=== PATIENT | female | born 1950 | race Caucasian/White ===

== ENCOUNTER 2022-03-04 09:11 | Outpatient (CLI) | payer MEDICARE, SELFPAY ==
--- NOTE | ~2022-03-04 | XR_ITS ---
EXAMINATION: XR knee LT 3V DATE: 03/04/2022 09:37 INDICATION: Left knee pain TECHNIQUE: Three views of the left knee were obtained. COMPARISON: 09/24/2020 FINDINGS: There are changes of total knee arthroplasty. Alignment is normal. There is no fracture. Th ere is no evidence of hardware failure or loosening. The soft tissues are unremarkable. There is no j oint effusion. IMPRESSION: 1. No acute osseous abnormality. Reviewed, dictated and finalized at location A.
== END 2022-03-04 09:12 | disposition home or self-care (01) ==
LOC: CHSIMG 09:13
PROVIDERS: PCP Family Medicine; Visit Provider Orthopaedic Surgery
DX: M25.562 Pain in left knee (principal)
CPT/HCPCS: 73562

== ENCOUNTER 2022-08-18 14:00 | Outpatient (CLI) | payer MEDICARE, SELFPAY ==
[2022-08-18 19:05] LABS: Basophils Absolute Auto 0.1 K/mm3 (0.0-0.1); Basophils Percent Auto 0.8 % (0.2-1.2); Eosinophils Absolute Auto 0.1 K/mm3 (0-0.3); Eosinophils Percent Auto 1.3 % (0-4.4); Hematocrit 46.7 % (37.0-47.0); Hemoglobin 15.3 g/dL (12.0-15.0); Immature Granulocyte Absolute 0.02 K/mm3 (0.00-0.031); Immature Granulocyte Percent A 0.2 % (0-0.5); Lymphocytes Absolute Auto 2.76 K/mm3 (0.9-3.2); Lymphocytes Percent Auto 32.4 % (18.3-44.2); Mean Corpuscular HGB Conc 32.8 g/dl (32-36); Mean Corpuscular Hemoglobin 29.5 pg (26-34); Mean Platelet Volume 11.2 fl (7.4-10.4); Monocytes Absolute Auto 0.5 K/mm3 (0.1-0.6); Monocytes Percent Auto 5.8 % (2.6-8.5); Neutrophils Absolute Auto 5.1 K/mm3 (1.3-6.7); Neutrophils Percent Auto 59.5 % (45.5-73.1); Platelet Count Result 266 k/mm3 (150-375); Red Blood Count 5.19 M/mm3 (4.2-5.4); Red Cell Distribution Width 12.6 % (11.5-14.5); White Blood Count 8.5 K/mm3 (4.5-10.0)
[2022-08-18 20:39] LABS: Vitamin D 25 Hydroxy 13.3 ng/mL
[2022-08-18 20:47] LABS: Hemoglobin A1C 5.5 % (<5.7)
[2022-08-18 21:32] LABS: Alanine Aminotransferase 26 U/L (6-35); Albumin Level 4.4 g/dL (3.5-5.1); Alkaline Phosphatase 82 U/L (38-126); Anion Gap 8 mmol/L (8-16); Aspartate Amino Transferase 32 U/L (14-36); Bilirubin,Total 0.9 mg/dL (0.2-1.3); Blood Urea Nitrogen 15 mg/dL (7-17); Carbon Dioxide 24 mmol/L (22-30); Chloride 107 mmol/L (98-107); Cholesterol 230 mg/dL (0-200); Estimated Glomerular Filt Rate > 60; Glucose 97 mg/dL (65-110); HDL Direct 52 mg/dL; Potassium 4.6 mmol/L (3.4-5.0); Sodium 139 mmol/L (137-145); Triglycerides 146 mg/dL (<150)
[2022-08-18 21:43] LABS: LDL Cholesterol Direct 130 mg/dL
== END 2022-08-18 14:01 | disposition home or self-care (01) ==
LOC: ANHGOSHLAB 14:01
PROVIDERS: PCP Family Medicine; Visit Provider Nurse Practitioner Family
DX: E03.9 Hypothyroidism, unspecified (principal); I10 Essential (primary) hypertension; R73.01 Impaired fasting glucose; E55.9 Vitamin D deficiency, unspecified
CPT/HCPCS: 36415; 80053; 80061; 82306; 83036; 84443; 85025

== ENCOUNTER 2023-02-16 13:20 | Outpatient (CLI) | payer MEDICARE, SELFPAY ==
[2023-02-16 20:35] LABS: Alanine Aminotransferase 30 U/L (6-35); Albumin Level 4.1 g/dL (3.5-5.1); Alkaline Phosphatase 74 U/L (38-126); Anion Gap 1 mmol/L (8-16); Aspartate Amino Transferase 51 U/L (14-36); Bilirubin,Total 0.8 mg/dL (0.2-1.3); Blood Urea Nitrogen 10 mg/dL (7-17); Calcium 8.7 mg/dL (8.4-10.2); Carbon Dioxide 34 mmol/L (22-30); Chloride 103 mmol/L (98-107); Cholesterol 220 mg/dL (0-200); Estimated Glomerular Filt Rate > 60; Glucose 92 mg/dL (65-110); HDL Direct 51 mg/dL; Potassium 4.1 mmol/L (3.4-5.0); Sodium 138 mmol/L (137-145); Triglycerides 145 mg/dL (<150)
[2023-02-16 20:40] LABS: Vitamin D 25 Hydroxy 59.3 ng/mL
[2023-02-16 20:47] LABS: LDL Cholesterol Direct 130 mg/dL
[2023-02-16 21:29] LABS: Basophils Absolute Auto 0.1 K/mm3 (0.0-0.1); Basophils Percent Auto 1.4 % (0.2-1.2); Eosinophils Absolute Auto 0.2 K/mm3 (0-0.3); Eosinophils Percent Auto 2.2 % (0-4.4); Hematocrit 46.9 % (37.0-47.0); Hemoglobin 14.8 g/dL (12.0-15.0); Immature Granulocyte Absolute 0.01 K/mm3 (0.00-0.031); Immature Granulocyte Percent A 0.1 % (0-0.5); Lymphocytes Absolute Auto 3.12 K/mm3 (0.9-3.2); Lymphocytes Percent Auto 42.3 % (18.3-44.2); Mean Corpuscular HGB Conc 31.6 g/dl (32-36); Mean Corpuscular Hemoglobin 29.5 pg (26-34); Mean Corpuscular Volume 93.4 fl (80-100); Mean Platelet Volume 11.3 fl (7.4-10.4); Monocytes Absolute Auto 0.5 K/mm3 (0.1-0.6); Monocytes Percent Auto 6.8 % (2.6-8.5); Neutrophils Absolute Auto 3.5 K/mm3 (1.3-6.7); Neutrophils Percent Auto 47.2 % (45.5-73.1); Platelet Count Result 271 k/mm3 (150-375); Red Blood Count 5.02 M/mm3 (4.2-5.4); Red Cell Distribution Width 13.1 % (11.5-14.5); White Blood Count 7.4 K/mm3 (4.5-10.0)
== END 2023-02-16 13:21 | disposition home or self-care (01) ==
LOC: ANHGOSHLAB 13:21
PROVIDERS: PCP Family Medicine; Visit Provider Nurse Practitioner Family
DX: E03.9 Hypothyroidism, unspecified (principal); I10 Essential (primary) hypertension; E78.5 Hyperlipidemia, unspecified; E55.9 Vitamin D deficiency, unspecified; M25.561 Pain in right knee
CPT/HCPCS: 36415; 80053; 80061; 82306; 84443; 85025

== ENCOUNTER 2023-04-22 17:35 | Emergency (ER) | payer MEDICARE, SELFPAY ==
--- NOTE | ~2023-04-22 | CT_ITS ---
EXAMINATION: CT cervical spine wo con DATE: 04/22/2023 18:28 INDICATION: fall TECHNIQUE: Computed tomography (CT) of the cervical spine was performed without intravenous contrast. Automated exposure control and iterative reconstruction technique were employed. The dose-length pro duct was 447.98 mGy-cm. COMPARISON: None. FINDINGS: Vertebral Body Alignment: Intact. Craniocervical and atlantoaxial alignment: Mild degenerative change. Alignment intact. Osseous structures/fracture: No evidence of a lytic or blastic process in the visualized spine. No e vidence of acute fracture. Cervical soft tissues: The paraspinal soft tissues planes are maintained. Atrophic or surgically abse nt thyroid Degenerative changes: No significant degenerative changes. IMPRESSION: No acute fracture or traumatic malalignment in the cervical spine. Reviewed, dictated and finalized at location K.
--- NOTE | ~2023-04-22 | CT_ITS ---
EXAMINATION: CT brain wo con DATE: 04/22/2023 18:28 INDICATION: fall, PT ON XARELTO . TECHNIQUE: Computed tomography (CT) of the head was performed without intravenous contrast. The mA wa s adjusted according to patient size. Iterative reconstruction technique was employed. The dose-lengt h product was 605.33 mGy-cm. COMPARISON: None. FINDINGS: Thin subdural collection along the anterior and mid falx measuring up to 4 mm in thickness. Small sub arachnoid component along the left medial aspect of the falx extending into an interhemispheric fissu re. No hydrocephalus, mass, or herniation. No acute ischemic infarct. Unremarkable dural venous sinus attenuation. No acute osseous abnormality. The aerated spaces are clear. Moderate atrophy and chronic white matter change. Atherosclerotic intracranial calcification. Bilater al lens replacements. IMPRESSION: Small volume, multi compartment intracranial hemorrhage. Results reported telephonically to Dr. Adams by Dr. Sheffield at 6:39 PM on 04/22/2023. Reviewed, dictated and finalized at location K. IMPRESSION: Small volume, multi compartment intracranial hemorrhage. Results reported telephonically to Dr. Adams by Dr. Sheffield at 6:39 PM on 04/22/20 23.
[2023-04-22 17:39] VITALS: BP 166/65; PULSE 83; RESP 16; TEMP 37; O2SAT 100
[2023-04-22 18:30] VITALS: BP 174/79; PULSE 70; RESP 20; O2SAT 100
[2023-04-22 18:52] VITALS: BP 161/57; PULSE 68; RESP 15; O2SAT 98
--- NOTE | 2023-04-22 18:54 | ED.GENADULT ---
HPI - General Adult General Chief complaint: Head Injury <HUGH Damon Last Filed: 04/23/23 00:06> Stated complaint: fall/ struck head/ <HUGH Damon Last Filed: 04/23/23 00:06> Time Seen by Provider: 04/22/23 18:26 <HUGH Damon Last Filed: 04/23/23 00:06> Source: patient <HUGH Damon Last Filed: 04/23/23 00:06> Mode of arrival: ambulatory <HUGH Damon Filed: 04/23/23 00:06> Limitations: no limitations <HUGH Damon Filed: 04/23/23 00:06> History of Present Illness HPI narrative: This is a 73-year-old female who presents to the ED from home for chief complaint of a head injury that occurred about 2 hours ago. Patient states that she was cleaning the shower and accidentally slipped on the wet floor. This caused her head to go down onto the floor and she suffered a right-sided head injury. Reports some headache at the time but no LOC. She states she was on Xarelto daily but stopped this 3 days ago as she felt she was not having any more problems with A-fib. She is here with her who reports she had a little bit of nausea and confusion at the time but that has completely resolved. Patient and family deny any speech changes. She denies vision changes. Denies seizures, numbness, weakness, vision changes. Reports that her headache is subsiding. <HUGH Damon Last Filed: 04/23/23 00:06> Related Data Home medications: Home Medications Medication Instructions Recorded Confirmed rivaroxaban 20 mg tablet (Xarelto) 20 mg PO DAILY 08/15/20 02/16/23 diphenhydramine 25 1 tablet PO QHS PRN 02/14/22 02/16/23 mg-acetaminophen 500 mg tablet (Tylenol PM Extra Strength) metoprolol succinate 25 mg 25 mg PO DAILY 08/18/22 02/16/23 tablet,extended release 24 hr <HUGH Damon Last Filed: 04/23/23 00:06> Allergies/adverse reactions: Allergies Allergy/AdvReac Type Severity Reaction Status Date / Time cyclobenzaprine Allergy Mild HIVES Verified 04/22/23 18:31 levothyroxine sodium Allergy Mild HIVES Verified 04/22/23 18:31 <HUGH Damon Last Filed: 04/23/23 00:06> Review of Systems Review of Systems: All systems as dictated in HPI <HUGH Damon Last Filed: 04/23/23 00:06> PMFSH Past Medical History Medical History: Medical History Elevated LDL cholesterol level Essential (primary) hypertension Hypothyroidism (acquired) Left knee pain Osteoarthritis Paroxysmal atrial fibrillation Pes anserine bursitis Pes anserine bursitis Left knee <HUGH Damon Last Filed: 04/23/23 00:06> Surgical History Surgical History: Surgical History History of appendectomy 1969 History of cholecystectomy 1999 History of left knee replacement (~06/2019) History of total hysterectomy with bilateral salpingo-oophorectomy (BSO) 1985 - hysterectomy with left salpingo-oophorectomy 2000 - right oophorectomy <HUGH Damon Last Filed: 04/23/23 00:06> Social History Social History: Social History Smoking status: Former smoker Second hand tobacco smoke exposure: No Smoking end date: 09/14/12 Alcohol intake: never Substance use: never Substance use type: does not use Lack of Transportation: No Lack of Food: Never True Current Housing: I Have Housing Concerned About Future Housing: No Difficulty Paying Gas/Electric Bills: No Difficulty Paying for Meds: No Currently Unemployed: No Education: High School Diploma/GED Difficulty w/ Childcare or Family Care: No <HUGH Damno Last Filed: 04/23/23 00:06> Exam Narrative: GENERAL: Well-appearing, well-nourished, and in no acute distress. HEAD: Normocephalic, atraumatic. EYES: PERRLA and EOMI. E
--- NOTE | 2023-04-22 19:10 | PC.NURSE ---
ASSUMED CARE. PT RESTING PER STRETCHER IN NO DISTRESS. PT A&OX4 C/O DUPREE 10/24.
[2023-04-22 19:12] LABS: Basophils Absolute Auto 0.1 K/mm3 (0.0-0.1); Basophils Percent Auto 0.8 % (0.2-1.2); Eosinophils Absolute Auto 0.1 K/mm3 (0-0.3); Eosinophils Percent Auto 1.4 % (0-4.4); Hematocrit 43.3 % (37.0-47.0); Hemoglobin 14.1 g/dL (12.0-15.0); Immature Granulocyte Absolute 0.02 K/mm3 (0.00-0.031); Immature Granulocyte Percent A 0.2 % (0-0.5); Lymphocytes Absolute Auto 2.49 K/mm3 (0.9-3.2); Lymphocytes Percent Auto 27.5 % (18.3-44.2); Mean Corpuscular HGB Conc 32.6 g/dl (32-36); Mean Corpuscular Hemoglobin 29.7 pg (26-34); Mean Corpuscular Volume 91.4 fl (80-100); Mean Platelet Volume 11.4 fl (7.4-10.4); Monocytes Absolute Auto 0.8 K/mm3 (0.1-0.6); Monocytes Percent Auto 8.4 % (2.6-8.5); Neutrophils Absolute Auto 5.6 K/mm3 (1.3-6.7); Neutrophils Percent Auto 61.7 % (45.5-73.1); Platelet Count Result 216 k/mm3 (150-375); Red Blood Count 4.74 M/mm3 (4.2-5.4); Red Cell Distribution Width 12.8 % (11.5-14.5); White Blood Count 9.1 K/mm3 (4.5-10.0)
[2023-04-22 19:14] VITALS: BP 152/59; PULSE 67; RESP 16; O2SAT 100
[2023-04-22 19:29] LABS: Prothrombin Time 13.5 Seconds (11.1-14.7)
[2023-04-22 19:30] LABS: Partial Thromboplastin Time 34.5 SECONDS (22.3-36.8)
--- NOTE | 2023-04-22 19:30 | PC.NURSE ---
PT TO BE TRANSFERRED TO [facility]. PT AWARE.
--- NOTE | 2023-04-22 19:38 | PC.NURSE ---
REPORT GIVEN TO BERNA GALDAMEZ AT [facility] ER
[2023-04-22 19:39] LABS: Alanine Aminotransferase 28 U/L (6-35); Albumin Level 4.1 g/dL (3.5-5.1); Alkaline Phosphatase 83 U/L (38-126); Anion Gap 7 mmol/L (8-16); Aspartate Amino Transferase 31 U/L (14-36); Bilirubin,Total 0.5 mg/dL (0.2-1.3); Blood Urea Nitrogen 12 mg/dL (7-17); Carbon Dioxide 28 mmol/L (22-30); Chloride 104 mmol/L (98-107); Estimated CRCL calculation 55 ml/min; Estimated Glomerular Filt Rate > 60; Glucose 111 mg/dL (65-110); Potassium 4.2 mmol/L (3.4-5.0); Sodium 139 mmol/L (137-145)
[2023-04-22 19:52] VITALS: BP 185/72; PULSE 68; RESP 15; O2SAT 100
== END 2023-04-22 20:08 | disposition short-term general hospital (02) ==
PROVIDERS: Emergency Provider Physician Assistant; PCP Family Medicine
DX: S06.5X0A Traumatic subdural hemorrhage without loss of consciousness, initial encounter (principal); S06.6X0A Traumatic subarachnoid hemorrhage without loss of consciousness, initial encounter; T45.516A Underdosing of anticoagulants, initial encounter; Z91.128 Patient's intentional underdosing of medication regimen for other reason; I48.0 Paroxysmal atrial fibrillation; I10 Essential (primary) hypertension; E78.00 Pure hypercholesterolemia, unspecified; E03.9 Hypothyroidism, unspecified; M19.90 Unspecified osteoarthritis, unspecified site; Z96.652 Presence of left artificial knee joint; Z87.891 Personal history of nicotine dependence; Z90.49 Acquired absence of other specified parts of digestive tract; Z90.710 Acquired absence of both cervix and uterus; Z90.722 Acquired absence of ovaries, bilateral; Z90.79 Acquired absence of other genital organ(s); Z79.01 Long term (current) use of anticoagulants; W01.0XXA Fall on same level from slipping, tripping and stumbling without subsequent striking against object, initial encounter
CPT/HCPCS: 36415; 70450; 72125; 80053; 85025; 85610; 85730; 99285

== ENCOUNTER → 2023-05-19 11:13 | Outpatient (CLI) | payer MEDICARE, SELFPAY ==
--- NOTE | ~2023-05-19 | CT_ITS ---
EXAMINATION: CT brain wo con DATE: 05/19/2023 12:47 INDICATION: Intracranial hemorrhage. Headache. TECHNIQUE: Computed tomography (CT) of the head was performed without intravenous contrast. The mA wa s adjusted according to patient size. Iterative reconstruction technique was employed. The dose-lengt h product was 645.69 mGy-cm. COMPARISON: Head CT 04/22/2023 FINDINGS: There is no intracranial hemorrhage, acute infarction, or abnormal intracranial mass lesion . The ventricles are normal in size. There are likely changes of ocular lens replacement surgeries. T here is mild mucosal thickening in the ethmoid sinuses. The mastoid air cells are normal. IMPRESSION: 1. Normal brain. Reviewed, dictated and finalized at location A. IMPRESSION: 1. Normal brain.
== END ==
PROVIDERS: PCP Nurse Practitioner Family; Visit Provider Nurse Practitioner Family
DX: I62.9 Nontraumatic intracranial hemorrhage, unspecified (principal)
CPT/HCPCS: 70450

== ENCOUNTER 2023-07-25 13:09 | Emergency (ER) | payer MEDICARE, SELFPAY ==
[2023-07-25 13:27] VITALS: BP 145/72; PULSE 87; RESP 18; TEMP 35.6; O2SAT 98
--- NOTE | 2023-07-25 13:54 | ED.URI ---
HPI - URI/Sore Throat General Chief Complaint: Upper Respiratory Infection Stated Complaint: covid + home test Time Seen by Provider: 07/25/23 13:30 Source: patient Mode of arrival: ambulatory Limitations: no limitations History of Present Illness HPI Narrative: Elissa is a 73-year-old female patient presenting to the clinic today with complaints of cough, fever, headache, runny nose, and congestion x1 day. She reports she took an at-home COVID test this morning and was positive. She denies any chest pain or shortness of breath. MD elicited complaint: sore throat and nasal congestion Related Data Home Medications Medication Instructions Recorded Confirmed diphenhydramine 25 1 tablet PO QHS PRN 02/14/22 04/29/23 mg-acetaminophen 500 mg tablet (Tylenol PM Extra Strength) metoprolol succinate 25 mg 25 mg PO DAILY 08/18/22 04/29/23 tablet,extended release 24 hr Allergies Allergy/AdvReac Type Severity Reaction Status Date / Time cyclobenzaprine Allergy Mild HIVES Verified 04/29/23 12:59 levothyroxine sodium Allergy Mild HIVES Verified 04/29/23 12:59 Review of Systems Review of Systems: Pertinent positives per HPI. Patient denies any rash, headache, visual changes, dizziness, shortness of breath, chest pain, palpitations, nausea, vomiting, diarrhea, constipation, abdominal pain, or any urinary issues. [facility] Past Medical History Medical History (Updated 07/25/23 @ 13:55 by Mathew Butcher APRN) Elevated LDL cholesterol level Essential (primary) hypertension Hospital discharge follow-up Hypothyroidism (acquired) Intracranial bleed Left knee pain Osteoarthritis Paroxysmal atrial fibrillation Pes anserine bursitis Pes anserine bursitis Left knee Surgical History Surgical History History of appendectomy 1968 History of cholecystectomy 1999 History of left knee replacement (~06/2019) History of total hysterectomy with bilateral salpingo-oophorectomy (BSO) 1985 - hysterectomy with left salpingo-oophorectomy 2000 - right oophorectomy Social History Social History Smoking status: Former smoker Second hand tobacco smoke exposure: No Smoking end date: 09/14/12 Alcohol intake: never Substance use: never Substance use type: does not use Lack of Transportation: No Lack of Food: Never True Current Housing: I Have Housing Concerned About Future Housing: No Difficulty Paying Gas/Electric Bills: No Difficulty Paying for Meds: No Currently Unemployed: No Education: High School Diploma/GED Difficulty w/ Childcare or Family Care: No Comments At the time of my signature, I reviewed and agree with the nursing past medical, surgical, social, and family history. There is no relevant family history pertinent to the patient complaint. Exam Narrative: General: Well-developed, obese, in no apparent distress Head: Normocephalic, atraumatic Eyes: Pupils equally round and reactive to light bilaterally, EOM intact, sclera and conjunctive clear, no discharge, lids normal Ears: TMs intact and clear, ear canals clear, no drainage, grossly hearing normal. Nose: Nares patent, clear discharge, no inflammation, no sinus tenderness. Mouth: Oral pharynx red without lesions or masses, good dentition, MMM. Neck: Supple, trachea midline, no enlargement of anterior or posterior cervical nodes, no thyroid masses or goiter palpable. Cardio: Regular rate and rhythm, s1 and s2 normal, no murmur appreciated. Resp: Clear to auscultation bilaterally, no rhonchi, rales, wheezing or rubs Course Course Emergency Course: Portions of this record may have been created with voice recognition software. Level of Care: Express Care Visit Vital Signs Vital signs: Vital Signs Temperature 35.6 C L 07/25/23 13:27 Pulse Rate 87 07/25/23 13:27 Respiratory Rate 18
== END 2023-07-25 14:05 | disposition home or self-care (01) ==
PROVIDERS: Emergency Provider Nurse Practitioner Family; PCP Family Medicine
DX: U07.1 COVID-19 (principal); I10 Essential (primary) hypertension; E03.9 Hypothyroidism, unspecified; I48.0 Paroxysmal atrial fibrillation; Z87.891 Personal history of nicotine dependence
CPT/HCPCS: 87426; 99213; C9803; G0463

== ENCOUNTER 2023-08-25 09:19 | Outpatient (CLI) | payer MEDICARE, SELFPAY ==
[2023-08-25 12:55] LABS: Basophils Absolute Auto 0.1 K/mm3 (0.0-0.1); Basophils Percent Auto 1.1 % (0.2-1.2); Eosinophils Absolute Auto 0.2 K/mm3 (0-0.3); Eosinophils Percent Auto 2.7 % (0-4.4); Hemoglobin 14.3 g/dL (12.0-15.0); Immature Granulocyte Absolute 0.01 K/mm3 (0.00-0.031); Immature Granulocyte Percent A 0.2 % (0-0.5); Lymphocytes Absolute Auto 2.47 K/mm3 (0.9-3.2); Lymphocytes Percent Auto 44.9 % (18.3-44.2); Mean Corpuscular HGB Conc 31.1 g/dl (32-36); Mean Corpuscular Hemoglobin 28.7 pg (26-34); Mean Corpuscular Volume 92.2 fl (80-100); Mean Platelet Volume 11.5 fl (7.4-10.4); Monocytes Absolute Auto 0.5 K/mm3 (0.1-0.6); Monocytes Percent Auto 8.5 % (2.6-8.5); Neutrophils Absolute Auto 2.3 K/mm3 (1.3-6.7); Neutrophils Percent Auto 42.6 % (45.5-73.1); Platelet Count Result 229 k/mm3 (150-375); Red Blood Count 4.99 M/mm3 (4.2-5.4); Red Cell Distribution Width 12.8 % (11.5-14.5); White Blood Count 5.5 K/mm3 (4.5-10.0)
[2023-08-25 13:22] LABS: Alanine Aminotransferase 29 U/L (6-35); Albumin Level 3.9 g/dL (3.5-5.1); Alkaline Phosphatase 82 U/L (38-126); Anion Gap 4 mmol/L (8-16); Aspartate Amino Transferase 45 U/L (14-36); Bilirubin,Total 0.9 mg/dL (0.2-1.3); Blood Urea Nitrogen 16 mg/dL (7-17); Calcium 9.1 mg/dL (8.4-10.2); Carbon Dioxide 30 mmol/L (22-30); Chloride 105 mmol/L (98-107); Cholesterol 200 mg/dL (0-200); Estimated Glomerular Filt Rate > 60; Glucose 110 mg/dL (65-110); HDL Direct 45 mg/dL; Potassium 3.9 mmol/L (3.4-5.0); Sodium 139 mmol/L (137-145); Triglycerides 126 mg/dL (<150)
[2023-08-25 13:32] LABS: LDL Cholesterol Direct 124 mg/dL
[2023-08-28 23:42] LABS: Vitamin D 1,25 (OH)2 Total 50 pg/mL (18-72); Vitamin D2 1,25 (OH)2 <8 pg/mL; Vitamin D3 1,25 (OH)2 50 pg/mL
== END 2023-08-25 09:20 | disposition home or self-care (01) ==
LOC: ANHGOSHLAB 09:21
PROVIDERS: PCP Family Medicine; Visit Provider Nurse Practitioner Family
DX: E55.9 Vitamin D deficiency, unspecified (principal); I10 Essential (primary) hypertension; E03.9 Hypothyroidism, unspecified
CPT/HCPCS: 36415; 80053; 80061; 82652; 84443; 85025

== ENCOUNTER 2023-12-11 14:07 | Outpatient (CLI) | payer MEDICARE, SELFPAY ==
--- NOTE | ~2023-12-11 | MM_ITS ---
EXAMINATION: MM screening anyi BI w manny HISTORY: Screening mammogram TECHNIQUE: Craniocaudal and mediolateral oblique 3-D tomosynthesis images were obtained and synthetic 2-D images were generated. CAD analysis was submitted and interpreted. COMPARISON: 04/12/2019 bilateral screening mammogram BREAST PARENCHYMAL COMPOSITION: There are scattered areas of fibroglandular density. FINDINGS: There is no evidence of suspicious mass, calcification, or architectural distortion to sugg est malignancy in either breast. There has been no suspicious interval change. IMPRESSION: 1. No mammographic evidence of malignancy. 2. Recommend routine screening mammography in one year. BI-RADS Category 1: Negative Reviewed, dictated and finalized at location A.
== END 2023-12-11 14:08 ==
LOC: MICIMG 14:08
PROVIDERS: PCP Family Medicine; Visit Provider Family Medicine
DX: Z12.31 Encounter for screening mammogram for malignant neoplasm of breast (principal)
CPT/HCPCS: 77063; 77067

== ENCOUNTER 2024-03-22 14:12 | Outpatient (CLI) | payer MEDICARE, SELFPAY ==
--- NOTE | ~2024-03-22 | XR_ITS ---
Left Hand Technique: PA, oblique, and lateral views were obtained. Clinical History: Osteoarthritis Findings: No acute fracture or dislocation is seen. Osseous alignment is anatomic. Joint spaces are p reserved. Soft tissues are unremarkable. Impression: Unremarkable left hand. Reviewed, dictated and finalized at location M. Impression: Unremarkable left hand.
--- NOTE | ~2024-03-22 | XR_ITS ---
XR hand RT min 3V Ordering provider: Marnie Noriega PA-C History: . M19.049 - Primary osteoarthritis, unspecified hand . Comparison: None. FINDINGS: BONES: No acute fracture or dislocation. Osteopenia of the bones. JOINT SPACES: Narrowing of the proximal and distal interphalangeal joints. Narrowing of the carpometa carpal joints. Subarticular cystic changes seen in the third and fourth finger. SOFT TISSUES: Normal. IMPRESSION: No acute osseous abnormality right hand. Highly suggestive of osteoarthritic changes. Evaluation for rheumatoid arthritis is also visualized. Reviewed, dictated and finalized at location A. IMPRESSION: No acute osseous abnormality right hand. Highly suggestive of osteoarthritic changes. Evaluation for rheumatoid arthriti s is also visualized.
== END 2024-03-22 14:13 | disposition home or self-care (01) ==
PROVIDERS: PCP Family Medicine; Visit Provider Physician Assistant Surgical
DX: M19.041 Primary osteoarthritis, right hand (principal)
CPT/HCPCS: 73130

== ENCOUNTER 2024-05-03 08:46 | Outpatient (CLI) | payer MEDICARE, SELFPAY ==
--- NOTE | 2024-05-03 11:30 | NEURO_ITS ---
Impression: # Complains of numbness of hands. # Normal Nerve Conduction Study, no Carpal Tunnel Syndrome or ulnar neuropathy. # Normal needle/EMG exam. # Clinical correlation recommended. Nerve Conduction Studies Anti Sensory Summary Table Stim Site NR Peak (ms) P-T Amp (?V) Site1 Site2 Delta-P (ms) Dist (cm) Kyree (m/s) Left Median Anti Sensory (2-3nd Digit) Wrist 2.5 59.5 Wrist 2-3nd Digit 2.5 14.0 56 Wrist 2.7 63.6 Wrist 2-3nd Digit 2.5 14.0 56 Right Median Anti Sensory (2-3nd Digit) Wrist 2.5 91.8 Wrist 2-3nd Digit 2.5 14.0 56 Wrist 2.4 74.1 Wrist 2-3nd Digit 2.5 14.0 56 Left Radial Anti Sensory (Base 1st Digit) Wrist 2.0 29.1 Wrist Base 1st Digit 2.0 0.0 Right Radial Anti Sensory (Base 1st Digit) Wrist 2.2 18.4 Wrist Base 1st Digit 2.2 0.0 Left Ulnar Anti Sensory (5th Digit) Wrist 2.3 66.1 Wrist 5th Digit 2.3 14.0 61 Right Ulnar Anti Sensory (5th Digit) Wrist 2.2 72.6 Wrist 5th Digit 2.2 14.0 64 Motor Summary Table Stim Site NR Onset (ms) O-P Amp (mV) Site1 Site2 Delta-0 (ms) Dist (cm) Kyree (m/s) Left Median Motor (Abd Poll Brev) Wrist 3.0 3.2 Elbow Wrist 4.7 26.0 55 Elbow 7.7 3.0 Right Median Motor (Abd Poll Brev) Wrist 2.8 6.3 Elbow Wrist 4.7 26.0 55 Elbow 7.5 4.9 Left Ulnar Motor (Abd Dig Minimi) Wrist 2.7 7.5 A Elbow Wrist 4.8 28.0 58 A Elbow 7.5 6.2 Right Ulnar Motor (Abd Dig Minimi) Wrist 2.7 6.6 A Elbow Wrist 5.1 28.0 55 A Elbow 7.8 5.6 F Wave Studies NR F-Lat (ms) L-R F-Lat (ms) Left Median (Mrkrs) (Abd Poll Brev) 26.48 0.44 Right Median (Mrkrs) (Abd Poll Brev) 26.04 0.44 Left Ulnar (Mrkrs) (Abd Dig Min) 27.80 0.51 Right Ulnar (Mrkrs) (Abd Dig Min) 27.29 0.51 EMG Side Muscle Nerve Root Ins Act Fibs Amp Dur Recrt Comment Right 1stDorInt Ulnar C8-T1 Nml Nml Nml Nml Nml Right Ext Indicis Radial (Post Int) C7-8 Nml Nml Nml Nml Nml Right Ext Digitorum Radial (Post Int) C7-8 Nml Nml Nml Nml Nml Right BrachioRad Radial C5-6 Nml Nml Nml Nml Nml Right PronatorTeres Median C6-7 Nml Nml Nml Nml Nml Right Abd Poll Brev Median C8-T1 Nml Nml Nml Nml Nml Right ABD Dig Min Ulnar C8-T1 Nml Nml Nml Nml Nml Left 1stDorInt Ulnar C8-T1 Nml Nml Nml Nml Nml Left Ext Indicis Radial (Post Int) C7-8 Nml Nml Nml Nml Nml Left Ext Digitorum Radial (Post Int) C7-8 Nml Nml Nml Nml Nml Left BrachioRad Radial C5-6 Nml Nml Nml Nml Nml Left PronatorTeres Median C6-7 Nml Nml Nml Nml Nml Left Abd Poll Brev Median C8-T1 Nml Nml Nml Nml Nml Left ABD Dig Min Ulnar C8-T1 Nml Nml Nml Nml Nml MTDD
== END 2024-05-03 08:47 | disposition home or self-care (01) ==
LOC: ANHNEURO 08:48
PROVIDERS: PCP Family Medicine; Visit Provider Physician Assistant Surgical
DX: G56.23 Lesion of ulnar nerve, bilateral upper limbs (principal); G56.03 Carpal tunnel syndrome, bilateral upper limbs
CPT/HCPCS: 95886; 95911

== ENCOUNTER 2024-08-25 11:42 | Outpatient (CLI) | payer MEDICARE, SELFPAY ==
[2024-08-25 13:39] LABS: Basophils Absolute Auto 0.1 K/mm3 (0.0-0.1); Basophils Percent Auto 1.2 % (0.2-1.2); Eosinophils Absolute Auto 0.2 K/mm3 (0-0.3); Eosinophils Percent Auto 2.3 % (0-4.4); Hematocrit 47.5 % (37.0-47.0); Hemoglobin 15.1 g/dL (12.0-15.0); Immature Granulocyte Absolute 0.02 K/mm3 (0.00-0.031); Immature Granulocyte Percent A 0.3 % (0-0.5); Lymphocytes Absolute Auto 2.89 K/mm3 (0.9-3.2); Lymphocytes Percent Auto 39.3 % (18.3-44.2); Mean Corpuscular HGB Conc 31.8 g/dl (32-36); Mean Corpuscular Hemoglobin 29.5 pg (26-34); Mean Platelet Volume 11.3 fl (7.4-10.4); Monocytes Absolute Auto 0.6 K/mm3 (0.1-0.6); Monocytes Percent Auto 8.7 % (2.6-8.5); Neutrophils Absolute Auto 3.6 K/mm3 (1.3-6.7); Neutrophils Percent Auto 48.2 % (45.5-73.1); Platelet Count Result 236 k/mm3 (150-375); Red Blood Count 5.11 M/mm3 (4.2-5.4); Red Cell Distribution Width 12.6 % (11.5-14.5); White Blood Count 7.4 K/mm3 (4.5-10.0)
[2024-08-25 13:47] LABS: Alanine Aminotransferase 37 U/L (6-35); Albumin Level 4.1 g/dL (3.5-5.1); Alkaline Phosphatase 67 U/L (38-126); Anion Gap 0 mmol/L (4-12); Aspartate Amino Transferase 78 U/L (14-36); Bilirubin,Total 1.2 mg/dL (0.2-1.3); Blood Urea Nitrogen 12 mg/dL (7-17); Calcium 9.3 mg/dL (8.4-10.2); Carbon Dioxide 32 mmol/L (22-30); Chloride 104 mmol/L (98-107); Cholesterol 186 mg/dL (0-200); Estimated Glomerular Filt Rate > 60; Glucose 109 mg/dL (65-110); HDL Direct 48 mg/dL; Potassium 4.7 mmol/L (3.4-5.0); Sodium 136 mmol/L (137-145); Triglycerides 132 mg/dL (<150)
[2024-08-25 13:57] LABS: LDL Cholesterol Direct 104 mg/dL
[2024-08-25 18:19] LABS: Hemoglobin A1C 5.6 % (<5.7)
[2024-08-28 16:49] LABS: Vitamin D 1,25 (OH)2 Total 54 pg/mL (18-72); Vitamin D2 1,25 (OH)2 <8 pg/mL; Vitamin D3 1,25 (OH)2 54 pg/mL
== END 2024-08-25 11:43 | disposition home or self-care (01) ==
LOC: ANHGOSHLAB 11:44
PROVIDERS: PCP Family Medicine; Visit Provider Nurse Practitioner Family
DX: E78.5 Hyperlipidemia, unspecified (principal); I10 Essential (primary) hypertension; R73.03 Prediabetes; E55.9 Vitamin D deficiency, unspecified; E53.8 Deficiency of other specified B group vitamins
CPT/HCPCS: 36415; 80053; 80061; 82607; 82652; 83036; 85025

== ENCOUNTER 2025-02-22 09:02 | Outpatient (CLI) | payer MEDICARE, SELFPAY ==
--- OUTSIDE RECORDS SUMMARY | 2025-02-22 09:38 | XMS_ITS | Clinical Summary ---
Author Organization [email or web address] Address [address] [place] [address] Care Team Providers Care Maintenance And Utilities Supervisor Name Role Phone Unavailable Primary Care Provider Unavailabl e Source Comments [facility],non-owned Affiliates and Associated Physician Practices is amultiple site organization consisting of ambulatory clinics and hospital sitesin [place], [place], [place] and [place]. This disclosure is being madepursuant to the Care Everywhere program and may not contain all information available regarding this patient. Last updated 18.[email or web address] Allergies Active Allergy Reactions Criticality Noted Date Comments Levothyroxine Urticaria,Unknown Medium 07/14/2019 Medications * Be aware that medications may not be up to date on this document. Alwaysverify current medications with the patient. levothyroxine (Synthroid) 100 MCG tablet Take 1 (one) tablet by mouth every morning 2 Active metoprolol succinate XL 24hr (Toprol XL) 25 MG tablet 3 Active Cholecalcifero l (vitamin D3) 1.25 MG (33784 UT) capsule Take 1 (one) capsule by mouth every 7 days 3 Active celecoxib (CeleBREX) 200 MG capsule Take 1 (one) capsule by mouth 2 times daily 60 capsule 5 3 Active acetaminophen (Tylenol) 325 MG tablet Take 2 (two) tablets by mouth every 6 hours as needed Maximum allowable Acetaminophen amount = 4 Grams (4000 mg) / 24 hours. 3 Active senna (Senokot) 8.6 MG tablet Take 1 (one) tablet by mouth once daily 14 tablet 3 Active oxyCODONE, immediate release, (Roxicodone) 5 MG tabletIndicati ons:Traumatic subdural hematoma with loss of consciousness, initial encounter ([facility]) Take 1 (one) tablet by mouth every 6 hours as needed for Pain 6 tablet 3 Active Active Problems Problem Noted Date Diagnosed Date Traumatic subdural hematoma with loss of consciousness, initial encounter 04/22/2023 Graves disease 04/23/2022 04/23/2023 Hypothyroidism 10/13/2019 04/23/2023 Paroxysmal atrial fibrillation 10/13/2019 0 04/23/2023 Overview (04/23/2023): Last Assessment & Plan: I recommended a 30 day event monitor to assess her atrial fibrillation burden. We could consider stopping anticoagulation if she is not having atrial fibrillation. Primary hypertension 10/13/2019 04/23/2023 Overview (04/23/2023): Last Assessment & Plan: Her blood pressure in the office is well controlled. Continue metoprolol. Social History Tobacco Use Types Packs/Day Years Used Date Smoking Tobacco: Never Smokeless Tobacco: Never Tobacco Cessation:Counseling Given: Not Answered Alcohol Use Standard Drinks/Week Comments Never 0 (1 standard drink = 0.6 oz pur e alcohol) AUDIT-C Answer Date Recorded Q1: How often do you have a drink containing alcohol? Never 04/22/2023 Q2: How many drinks containi ng alcohol do you have on a typical day when you are drinking? Patient does not drink Q3: How often do you have si x or more drinks on one occasion? Never 04/22/2023 Comments Unknown Sex and Gender Information Value Date Recorded Sex Assigned at Not on file Legal Sex Female 8:20 AM CDT Gender Identity Not on file Sexual Orientation Not on file Last Filed Vital Signs Vital Sign Reading Time Taken Comments Blood Pressure 110/68 04/23/2023 2:00 PM CDT Pulse 55 04/23/2023 2:00 PM CDT Temperature 37 C (98.6 F) 04/23/2023 11:00 AM CDT Respiratory Rate 15 04/23/2023 2:00 PM CDT Oxygen Saturation 92% 04/23/2023 2:00 PM CDT Inhaled Oxygen Concentration - - Weight 90.7 kg (200 lb) 04/22/2023 8:39 PM CDT Height 162.6 cm (5' 4) 04/22/2023 8:39 PM CDT Body Mass Index 34.33 04/22/2023 8:39 PM CDT Plan of Treatment Health Maintenance Due Date Last Done Comments BONE DENSITY TESTING 1950 COLOGUARD (AGES 45-75) - COL ON CA SCREENING 1950 COLON MONITORING 1950 COLONOSCOPY - COLON CA SCREENING 1951 CT COLONOGRAPHY - COLON CA SCREENING 1950 Colorectal Cancer Screening 1950 FIT - COLON CA SCREENING 1950 FLEX SIG - COLON CA SCREENING 1950 MAMMOGRAM 1950 HEPATITIS C SCREENING 03/01/1969 DTAP/TDAP/TD VACCINES (1 - Tdap) 1970 PNEUMOCOCCAL VACCINE 50+ (1 of 1 - PCV) 2001 ZOSTER VACCINE (1 of 2) 2001 COVID-19 VACCINE (1 - 2023-2 5 season) 2024 DEPRESSION SCREENING 09/14/2024 MEDICARE AWV CALENDAR YEAR 2024 INFLUENZA VACCINE (Season Ended) 2025 Respiratory Syncytial Virus (RSV) Vaccine Pt: or over 60 yrs (1 - 1-dose 75+ series) 2026 LIPID TESTING 11/25/2026 11/25/2021 HEPATITIS B VACCINE Aged Out No longe r eligible based on patient's age to complete this topic HIB VACCINE Aged Out No longer eligi ble based on patient's age to complete this topic HPV VACCINE Aged Out No longer eligi ble based on patient's age to complete this topic MENINGOCOCCAL (Group B) VACC INE SHARED DECISION-MAKING Aged Out No longer eligibl e based on patient's age to complete this topic MENINGOCOCCAL GROUPS A/C/Y/W VACCINE Aged Out No longer eligible b ased on patient's age to complete this topic Insurance Advance Directives * Full Code (Latest Code Status on File) Date Activated Date Inactivated Comments 04/23/2023 12:23 AM 04/23/2023 5:24 PM
--- OUTSIDE RECORDS SUMMARY | 2025-02-22 09:38 | XMS_ITS | Encounter Summary ---
Author Organization [facility] Address 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
--- OUTSIDE RECORDS SUMMARY | 2025-02-22 09:38 | XMS_ITS | Clinical Summary ---
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 Gender Identity Not on file Sexual Orientation Not on file Plan of Treatment Health Maintenance Due Date Last Done Comments DTAP/TDAP/TD VACCINES (1 - Tdap) 1970 BREAST CANCER SCREENING 1991 COLORECTAL SCREENING 1996 Colorectal Cancer Screening 1996 FIT-DNA Q 3 years 1996 FIT/FOBT Q 1 year 1996 Flex Sig/CT Colonography Q 5 years 1996 PNEUMOCOCCAL VACCINE 50+ YEARS (1 of 1 - PCV) 03/06/20 ZOSTER VACCINE (1 of 2) 2001 OSTEOPOROSIS SCREENING 2016 INFLUENZA VACCINE (#1) 2024 RSV VACCINE (60+ or ) (1 - 1-dose 75+ series) 2026 Care Teams Satellite Specialist Relationship Specialty Start Date End Date Ric Diaz MD [address] [place] [id number] PCP - General 07/19/02
--- OUTSIDE RECORDS SUMMARY | 2025-02-22 09:38 | XMS_ITS | Clinical Summary ---
Author Organization [facility] [address] [facility] [address] Address [address] [place] [address] Care Team Providers Care Varnish Cooker Name Role Phone Zbigniew Adame MD Primary Care Provider Allergies Active Allergy Reactions Criticality Noted Date Comments Levothyroxine Unknown 07/14/2019 Medications diphenhydrAMINE- acetaminophen (TYLENOL PM) 25-500 mg tablet Take 1 tablet by mouth daily as needed for sleep Active Synthroid 100 mcg tablet Take 100 mcg by mouth daily 11/12/2021 Active furosemide (LASIX) 20 mg tabletIndication s:Bilateral lower extremity edema Take 1 tablet (20 mg total) by mouth daily as needed (swelling) 30 tablet 1 11/25/2021 Active Xarelto 20 mg tablet TAKE 1 TABLET(20 MG) BY MOUTH DAILY 90 tablet 1 01/20/2022 Active metoprolol tartrate (LOPRESSOR) 25 mg immediate release tablet TAKE 1/2 TABLET(12.5 MG) BY MOUTH TWICE DAILY 90 tablet 1 01/20/2022 Active Active Problems Problem Noted Date Diagnosed Date Bilateral lower extremity edema 11/25/2021 Hypothyroidism 10/13/2019 Chronic anticoagulation 10/13/2019 Essential hypertension 10/13/2019 Paroxysmal atrial fibrillation 10/13/2019 Surgical History Surgery Date Site/Laterality Comments CHOLECYSTECTOMY HYSTERECTOMY REPLACEMENT TOTAL KNEE Medical History Medical History Date Comments Hypertension Atrial fibrillation (HCC) Thyroid disease Family History Medical History Relation Name Comments No Known Problems Brother Emphysema Father natural causes Mother No Known Problems Sister 1 No Known Problems Sister 2 Heart failure Sister 3 Relation Name Status Comments Brother Alive Father (Age 77) Mother (Age 94) Sister 1 Alive Sister 2 Alive Sister 3 Alive Social History Tobacco Use Types Packs/Day Years Used Date Smoking Tobacco: Former Cigarettes Q uit: 07/14/2012 E-cigarettes Smokeless Tobacco: Never Comments:D/C vaping 2-3 tae hs ago Alcohol Use Standard Drinks/Week Comments Never 0 (1 standard drink = 0.6 oz pur e alcohol) AUDIT-C Answer Date Recorded Frequency of Alcohol Consumption Never 07/14/2019 Average Number of Drinks Not on file 019 Frequency of Binge Drinking Not on file 06/16 Personal Safety Answer Date Recorded Getting School Help Needed Not on file 11/26 Comments Unknown Sex and Gender Information Value Date Recorded Sex Assigned at Not on file Legal Sex Female 1:52 AM UMBRELLA TIPPER HAND Gender Identity Not on file Sexual Orientation Not on file Obstetrics History Last Filed Vital Signs Vital Sign Reading Time Taken Comments Blood Pressure 130/80 11/25/2021 10:38 AM CDT Pulse 76 11/25/2021 10:38 AM CDT Temperature - - Respiratory Rate - - Oxygen Saturation 98% 11/25/2021 10:38 AM CDT Inhaled Oxygen Concentration - - Weight 96.6 kg (213 lb) 11/25/2021 10:38 AM CDT Height 165.1 cm (5' 5) 11/25/2021 10:38 AM CDT Body Mass Index 35.45 11/25/2021 10:38 AM CDT Plan of Treatment Not on file Insurance [facility] MDCR HMO REF Care Teams Varnish Cooker Relationship Specialty Start Date End Date Zbigniew Adame MD PCP - General Family Practice 06/18/19
--- OUTSIDE RECORDS SUMMARY | 2025-02-22 09:38 | XMS_ITS | Referral Summary ---
Author Organization [facility] [place] [address] Address [address] [place] [address] Care Team Providers Care Faculty Physician Name Role Phone Zbigniew Adame MD Primary [...] Essential hypertension 10/13/2019 Paroxysmal atrial fibrillation 10/13/2019 Social History Tobacco Use Types Packs/Day Years Used Date Smoking Tobacco: Former Cigarettes Q uit: 07/14/2012 E-cigarettes Smokeless Tobacco: Never Comments:D/C vaping 2-3 ate hs ago Alcohol Use Standard Drinks/Week Comments [...] on file Legal Sex Female 1:52 AM BATH MIXER Gender Identity Not on file Sexual Orientation [...] Plan of Treatment Not on file Insurance [facility] [place] [address] Care Teams Faculty Physician Relationship Specialty Start Date End Date Zbigniew Adame MD PCP - General Family Practice 06/18/19
[2025-02-22 12:26] LABS: Basophils Absolute Auto 0.1 K/mm3 (0.0-0.1); Basophils Percent Auto 0.9 % (0.2-1.2); Eosinophils Absolute Auto 0.1 K/mm3 (0-0.3); Eosinophils Percent Auto 1.6 % (0-4.4); Hematocrit 45.8 % (37.0-47.0); Hemoglobin 14.4 g/dL (12.0-15.0); Immature Granulocyte Absolute 0.01 K/mm3 (0.00-0.031); Immature Granulocyte Percent A 0.2 % (0-0.5); Lymphocytes Absolute Auto 2.34 K/mm3 (0.9-3.2); Lymphocytes Percent Auto 36.4 % (18.3-44.2); Mean Corpuscular HGB Conc 31.4 g/dl (32-36); Mean Corpuscular Hemoglobin 29.6 pg (26-34); Mean Platelet Volume 11.4 fl (7.4-10.4); Monocytes Absolute Auto 0.5 K/mm3 (0.1-0.6); Monocytes Percent Auto 7.5 % (2.6-8.5); Neutrophils Absolute Auto 3.4 K/mm3 (1.3-6.7); Neutrophils Percent Auto 53.4 % (45.5-73.1); Platelet Count Result 202 k/mm3 (150-375); Red Blood Count 4.87 M/mm3 (4.2-5.4); Red Cell Distribution Width 12.6 % (11.5-14.5); White Blood Count 6.4 K/mm3 (4.5-10.0)
[2025-02-22 12:43] LABS: Cholesterol 193 mg/dL (0-200); HDL Direct 51 mg/dL; Triglycerides 95 mg/dL (<150)
[2025-02-22 12:55] LABS: LDL Cholesterol Direct 107 mg/dL
[2025-02-22 13:20] LABS: Free T4 Free Thyroxine 1.51 ng/dL (0.78-2.19)
[2025-02-23 08:51] LABS: Alanine Aminotransferase 27 U/L (6-35); Albumin Level 3.7 g/dL (3.5-5.1); Alkaline Phosphatase 78 U/L (38-126); Anion Gap 3 mmol/L (4-12); Aspartate Amino Transferase 35 U/L (14-36); Bilirubin,Total 0.5 mg/dL (0.2-1.3); Blood Urea Nitrogen 15 mg/dL (7-17); Calcium 9.2 mg/dL (8.4-10.2); Carbon Dioxide 30 mmol/L (22-30); Chloride 106 mmol/L (98-107); Estimated Glomerular Filt Rate > 60; Glucose 110 mg/dL (65-110); Potassium 4.4 mmol/L (3.4-5.0); Sodium 139 mmol/L (137-145); Total Protein 6.1 g/dL (6.3-8.2)
== END 2025-02-22 09:03 | disposition home or self-care (01) ==
PROVIDERS: PCP Family Medicine; Visit Provider Nurse Practitioner Family
DX: E78.5 Hyperlipidemia, unspecified (principal); I10 Essential (primary) hypertension; E03.9 Hypothyroidism, unspecified; I48.0 Paroxysmal atrial fibrillation; R74.8 Abnormal levels of other serum enzymes
CPT/HCPCS: 36415; 80053; 80061; 84439; 84443; 85025

== ENCOUNTER 2025-05-17 10:42 | Outpatient (CLI) | payer MEDICARE, SELFPAY ==
--- OUTSIDE RECORDS SUMMARY | 2025-05-17 12:11 | XMS_ITS | Clinical Summary ---
Author Organization [facility] Address [facility] [place] [address] Care Team Providers Care Wire Border Assembler Name Role Phone Zbigniew Adame MD Primary Care Provider Allergies Active Allergy Reactions Criticality Noted Date Comments Cyclobenzaprine Hives 04/23/2022 Levothyroxine Hives 04/23/2022 Medications levothyroxine (SYNTHROID) 100 MCG tablet Take 1 tablet (100 mcg total) by mouth every morning. BRAND NAME ONLY Active metoprolol succinate ER (TOPROL-XL) 25 MG 24 hr tablet TAKE 1 TABLET(25 MG) BY MOUTH DAILY 90 tablet 2 5 Active aspirin EC (ECOTRIN) 81 MG tablet Take 1 tablet (81 mg total) by mouth daily. 5 Active atorvastatin (LIPITOR) 10 MG tablet Take 1 tablet (10 mg total) by mouth nightly at bedtime. 30 tablet 3 5 Active losartan (COZAAR) 25 MG tablet TAKE 1 TABLET(25 MG) BY MOUTH DAILY 90 tablet 3 5 Active losartan (COZAAR) 25 MG tablet Take 1 tablet (25 mg total) by mouth daily. 90 tablet 3 4 05/16/20 25 Discontinued Active Problems Problem Noted Date Diagnosed Date At risk for coronary artery disease 04/24/2025 Assessment & Plan (04/24/2025 1:44 PM CDT): She has an elevated ASCVD risk score of 14.3%. Recent lipid panel with LDL of 107. Patient is agreeable to starting aspirin 81mg daily and atorvastatin 10mg daily. Encouraged lifestyle modifications. Primary hypertension 04/23/2022 Assessment & Plan (04/24/2025 1:43 PM CDT): Blood pressure is well controlled in office. Continue losartan. Assessment & Plan (04/18/2024 2:46 PM CDT): Her blood pressure in the office is mildly elevated. Home readings are within limits. Continue losartan, metoprolol. Assessment & Plan (10/08/2023 2:55 PM MOTOR VEHICLE INSPECTOR): Her blood pressure in the office is elevated. Start losartan 25 mg daily. Continue metoprolol. Assessment & Plan (07/27/2022 10:48 PM MOTOR VEHICLE INSPECTOR): Her blood pressure in the office is well controlled. Continue metoprolol. Assessment & Plan (07/11/2022 9:32 AM CDT): Well-controlled on current regimen Hypothyroidism 04/23/2022 Paroxysmal atrial fibrillation ([facility]) 04/23/2022 Assessment & Plan (04/24/2025 1:42 PM CDT): She has a history of postoperative atrial fibrillation. Her monitor did not show recurrence of atrial fibrillation. Continue metoprolol. Not on anticoagulation due to history of SAH in 2022. She is not interested in resuming anticoagulation. Discussed LAAO device as an alternative to anticoagulation. Patient would like to think about procedure and will let us know if she changes her mind. Assessment & Plan (04/18/2024 2:45 PM CDT): She has a history of postoperative atrial fibrillation. Her monitor did not show recurrence of atrial fibrillation. Continue metoprolol. Not on anticoagulation. History of SAH in 2022. We briefly discussed left atrial appendage closure. She would prefer not to take anticoagulation. Assessment & Plan (10/08/2023 3:01 PM MOTOR VEHICLE INSPECTOR): She has a history of postoperative atrial fibrillation. Her monitor did not show recurrence of atrial fibrillation. Continue metoprolol. We discussed aspirin and for now would hold off given recent subarachnoid hemorrhage. We briefly discussed left atrial appendage closure. She would prefer not to take anticoagulation. Assessment & Plan (07/27/2022 10:47 PM MOTOR VEHICLE INSPECTOR): I recommended a 30 day event monitor to assess her atrial fibrillation burden. We could consider stopping anticoagulation if she is not having atrial fibrillation. Assessment & Plan (07/11/2022 9:32 AM CDT): Continued on Xarelto 20 mg a day for anticoagulation Continued on metoprolol 25 mg a day for rate control. Graves disease 04/23/2022 Osteoarthritis 04/23/2022 Bilateral lower extremity edema 11/25/2021 Encounters Date Type Department Care Team Description 04/24/2025 1:30 PM CDT Office Visit [facility] [facility], [address] [address] Thiago Rebolledo MD Lanter, Megan N, PA Atrial Fibrillation (Annual visit) 04/24/2025 Travel 03/02/2025 Telephone [facility], [address] [address] Viviana Cueto PA Blood Pressure from Last 3 Months Family History Medical History Relation Comments No Known Problems Father No Known Problems Mother Relation Status Comments Father Mother Social History Tobacco Use Types Packs/Day Years Used Date Smoking Tobacco: Former Cigarettes Smokeless Tobacco: Never Tobacco Cessation:Counseling Given: Not Answered Alcohol Use Standard Drinks/Week Comments Never 0 (1 standard drink = 0.6 oz pur e alcohol) Comments Unknown Sex and Gender Information Value Date Recorded Sex Assigned at Not on file Legal Sex Female 3:09 PM CDT Gender Identity Not on file Sexual Orientation Not on file Last Filed Vital Signs Vital Sign Reading Time Taken Comments Blood Pressure 110/80 04/24/2025 12:53 PM CDT Pulse 65 04/24/2025 12:53 PM CDT Temperature 36.8 C (98.2 F) 10/01/2023 2:55 PM MOTOR VEHICLE INSPECTOR Respiratory Rate 18 07/08/2023 10:40 AM CDT Oxygen Saturation 97% 04/24/2025 12:53 PM CDT Inhaled Oxygen Concentration - - Weight 95.1 kg (209 lb 9.6 oz) 04/24/2025 12:53 PM CDT Height 165.1 cm (5' 5) 04/24/2025 12:53 PM CDT Body Mass Index 34.88 04/24/2025 12:53 PM CDT Plan of Treatment Upcoming Encounters Date Type Department Care Team (Late st Contact Info) Description 12/25/2025 1:00 PM CDT Office Visit [facility] [facility], [address] [place], [place] [phone] Thiago Rebolledo MD [facility]. [address] [place], [place] [id number] Health Maintenance Due Date Last Done Comments Colorectal Cancer Screening Colonoscopy (10 Years) 1951 Hepatitis C 1969 DTaP, Tdap and Td Vaccines ( 1 - Tdap) 1970 Mammogram Screening 1991 Pneumococcal Vaccine: 50+ Ye ars (1 of 1 - PCV) 2001 Zoster Vaccines (1 of 2) 2001 RSV Immunization or 60+ Years (1 - Risk 60-74 years 1-dose series) 2011 Annual Medicare Wellness Visit 2016 Dexa Scan (General) 2016 COVID-19 Vaccine (1 - 2023-2 5 season) 2024 PHQ-2 (Physician [place]) 09/14/2024 Meningococcal B Vaccine Aged Out No l onger eligible based on patient's age to complete this topic Meningococcal Vaccine Aged Out No paul lexie eligible based on patient's age to complete this topic RSV Immunizations Under 20 Months Aged Out No longer eligible based on patient's age to complete this topic Insurance [facility] Care Teams Wire Border Assembler Relationship Specialty Start Date End Date Zbigniew Adame MD [address] [facility] [address] [place] [address] PCP - General FAMILY PRACTICE 04/14/25
--- OUTSIDE RECORDS SUMMARY | 2025-05-17 12:11 | XMS_ITS | Encounter Summary ---
Author Organization [facility] Address [address] [place] [address] Care Team Providers Care Composition Siding Worker Name Role Phone Ric Diaz MD Primary Care Provider [phone] Encounter Details Date Type Department Care Team (Late st Contact Info) Description 07/19/2002 Emergency [facility] Berry Prieto MD NO ADDRESS ON FILE Er, Authorized P NO ADDRESS ON FILE URIN TRACT INFECTION NOS (Primary Dx) Social History Tobacco Use Types Packs/Day Years Used Date Smoking Tobacco: Never Assessed Comments Unknown Sex and Gender Information Value Date Recorded Sex Assigned at Not on file Legal Sex Female 3:58 AM DELIVERY ANALYST Gender Identity Not on file Sexual Orientation Not on file documented as of this encounter Plan of Treatment Not on file documented as of this encounter Visit Diagnoses Diagnosis Urinary tract infection, site not specified- Primary documented in this encounter Care Teams Composition Siding Worker Relationship Specialty Start Date End Date Ric Diaz MD [address] [place] [phone] PCP - General 07/19/02 documented as of this encounter
--- OUTSIDE RECORDS SUMMARY | 2025-05-17 12:11 | XMS_ITS | Clinical Summary ---
Author Organization [facility] [employer] Address [address] [facility] [place] [address] Care Team Providers Care Tricot Knitting Machine Operator Name Role Phone Unavailable Primary Care Provider Unavailabl e Source Comments [facility],non-owned Affiliates and Associated Physician Practices is amultiple site organization consisting of ambulatory clinics and hospital sitesin [place], [place], [place] and [place]. This disclosure is being madepursuant to the Care Everywhere program and may not contain all information available regarding this patient. Last updated 18.[facility] Allergies Active Allergy Reactions Criticality Noted Date [...] Active Cholecalcifero l (vitamin D3) 1.25 MG (61050 UT) capsule Take 1 (one) capsule by [...] hematoma with loss of consciousness, initial encounter ([facility]) Take 1 (one) tablet by mouth every [...] MEDICARE AWV CALENDAR YEAR 2024 INFLUENZA VACCINE (#1) 2025 Respiratory Syncytial Virus (RSV) Vaccine Pt: [...]
--- OUTSIDE RECORDS SUMMARY | 2025-05-17 12:11 | XMS_ITS | Clinical Summary ---
Author Organization [facility] Address [address] [facility] Attn: Epic Prelude ADT [place] [address] Care Team Providers Care Coiler Operator Name Role Phone Ric Diaz MD Primary Care Provider Social History Tobacco Use Types Packs/Day Years Used Date Smoking Tobacco: Never Assessed Comments Unknown Sex and Gender Information Value Date Recorded Sex Assigned at Not on file Legal Sex Female 3:58 AM BAKERY DELIVERER Gender Identity Not on file Sexual Orientation [...] 2001 OSTEOPOROSIS SCREENING 2016 INFLUENZA VACCINE (#1) 2025 RSV VACCINE (60+ or ) (1 - 1-dose 75+ series) 2026 Care Teams Coiler Operator Relationship Specialty Start Date End Date Ric Diaz MD [address] [place] [phone] PCP - General 07/19/02
--- OUTSIDE RECORDS SUMMARY | 2025-05-17 12:11 | XMS_ITS | Encounter Summary ---
Author Organization [facility] Address [address] [place] [address] Care Team Providers Care Carcass Splitter Name Role Phone Zbigniew Adame MD Primary Care Provider Zbigniew Adame MD Primary Care Provider Encounter Details Date Type Department Care Team (Late Contact Info) Description 04/30/2022 Abstract [facility] [facility], [facility] [address] [place], [place] [phone] Courtney Urias MA Social History Tobacco Use Types Packs/Day Years Used Date Smoking Tobacco: Never Smokeless Tobacco: Never Alcohol Use Standard Drinks/Week Comments Never 0 (1 standard drink = 0.6 oz pur e alcohol) Comments Unknown Sex and Gender Information Value Date Recorded Sex Assigned at Not on file Legal Sex Female 3:09 PM CDT Gender Identity Not on file Sexual Orientation Not on file COVID-19 Exposure Response Date Recorded In the last 10 days, have yo u been in contact with someone who was confirmed or suspected to have Coronavirus/COVID-19? Unable to assess 05/01/2022 9:20 AM CDT documented as of this encounter Plan of Treatment Upcoming Encounters Date Type Department Care Team (Late Contact Info) Description 12/25/2025 1:00 PM CDT Office Visit [facility] [facility], [address] [place], [place] [phone] Thiago Rebolledo MD [facility]. [address] [place], [place] [phone] documented as of this encounter Procedures Procedure Name Priority Date/Time Associated Diagnosis Comments LIPID PANEL Routine 02/14/2022 LIPID PANEL Routine 11/25/2021 CBC (OUTSIDE LAB) Routine 07/25/2021 PROSTATE SPECIFIC ANTIGEN,TOTAL Routine 07/25/2021 COMPREHENSIVE METABOLIC PANEL Routine 07/25/2021 LIPID PANEL Routine 07/25/2021 HEMOGLOBIN, GLYCOSYLATED Routine 07/25/2021 documented in this encounter Results * LIPID PANEL (02/14/2022) CHOLESTEROL 203 HDL 47 TRIGLYCERIDES 160 NON HDL CHOLESTEROL 156 LDL (CALCULATED) 128 02/14/2022 us Doc [facility] Final Result * LIPID PANEL (11/25/2021) CHOLESTEROL 176 HDL 45 TRIGLYCERIDES 90 NON HDL CHOLESTEROL 130 LDL (CALCULATED) 112 11/25/2021 us Doc [facility] Final Result * HEMOGLOBIN, GLYCOSYLATED (07/25/2021) HGB A1C 5.2 % 07/25/2021 us Doc [facility] Final Result * CBC (OUTSIDE LAB) (07/25/2021) WBC 4.5 HGB 11.9 HCT 36.5 PLT 212 07/25/2021 us Doc [facility]-OUTSIDE/ABSTRACTED Final Result * LIPID PANEL (07/25/2021) CHOLESTEROL 130.2 HDL 59.9 TRIGLYCERIDES 78 LDL (CALCULATED) 58 07/25/2021 us Doc [facility] Final Result * PROSTATE SPECIFIC ANTIGEN,TOTAL (07/25/2021) Pathologist [facility] PSA 0.3 * 07/25/2021 us Doc [facility] Final Result * (ABNORMAL) COMPREHENSIVE METABOLIC PANEL (07/25/2021) Pathologist [facility] SODIUM S/P/B 140.7 POTASSIUM S/P/B 4.7 CO2 26.9 CHLORIDE S/P/B 104 GLUCOSE 101 mg/dL CALCIUM S/P/B 9.7 BUN 16 CREATININE S/P/B 0.95 0.5 - 1.0 EGFR AFR. AMER. 96(A) <=90 ALKALINE PHOSPHATASE S/P/B 42 ALT 21.9 AST 24.3 BILIRUBIN TOTAL S/P/B 0.5 ALBUMIN S/P/B 4.4 3.5 - 5.0 TOTAL PROTEIN S/P/B 7.2 07/25/2021 us Doc [facility] Final Result documented in this encounter Visit Diagnoses Not on filedocumented in this encounter Care Teams Carcass Splitter Relationship Specialty Start Date End Date Zbigniew Adame MD [address] [place] [address] PCP - General FAMILY PRACTICE 01/22/22 04/13/25 Zbigniew Adame MD [address] [facility] [address] [place] [address] PCP - General FAMILY PRACTICE 04/14/25 documented as of this encounter
--- OUTSIDE RECORDS SUMMARY | 2025-05-17 12:11 | XMS_ITS | Clinical Summary ---
Author Organization [facility] [address] Address [address] [place] [address] Care Team Providers Care Molding Manager Name Role Phone Zbigniew Adame MD Primary [...] on file Legal Sex Female 1:52 AM NIGHT COORDINATOR Gender Identity Not on file Sexual Orientation [...] Plan of Treatment Not on file Insurance [facility] MDCR HMO REF Care Teams Molding Manager Relationship Specialty Start Date End Date Zbigniew Adame MD PCP - General Family Practice 06/18/19
[2025-05-17 13:53] LABS: Free T4 Free Thyroxine 1.70 ng/dL (0.78-2.19)
[2025-05-17 14:04] LABS: Thyroid Stimulating Hormone 3.960 uIU/mL (0.465-4.680)
[2025-05-17 14:39] LABS: Free T3 2.75 pg/mL (2.45-5.93)
== END 2025-05-17 10:43 | disposition home or self-care (01) ==
LOC: ANHGOSHLAB 10:43
PROVIDERS: PCP Family Medicine; Visit Provider Nurse Practitioner Family
DX: E07.9 Disorder of thyroid, unspecified (principal); E05.00 Thyrotoxicosis with diffuse goiter without thyrotoxic crisis or storm; R22.1 Localized swelling, mass and lump, neck
CPT/HCPCS: 36415; 84439; 84443; 84481; 86376; 86800

== ENCOUNTER 2025-05-29 08:49 | Outpatient (CLI) | payer MEDICARE, SELFPAY ==
--- NOTE | ~2025-05-29 | US_ITS ---
US thyroid INDICATION: Thyrotoxicosis TECHNIQUE: Real-time sonographic images of the thyroid gland were obtained. COMPARISON: No prior studies for comparison. FINDINGS: Thyroid tissue not identified, possibly surgically absent. No evidence for left supraclavicular mass or lymph node. IMPRESSION: 1. Unremarkable limited ultrasound of the neck without evidence for thyroid tissue or mass, possibly surgically absent. Clinically correlate. Reviewed, dictated and finalized at location O. IMPRESSION: 1. Unremarkable limited ultrasound of the neck without evidence for thyroid ti ssue or mass, possibly surgically absent. Clinically correlate.
== END 2025-05-29 08:50 | disposition home or self-care (01) ==
PROVIDERS: Visit Provider Nurse Practitioner Family
DX: E05.00 Thyrotoxicosis with diffuse goiter without thyrotoxic crisis or storm (principal); R22.1 Localized swelling, mass and lump, neck
CPT/HCPCS: 76536

== ENCOUNTER 2025-08-23 12:32 | Outpatient (CLI) | payer MEDICARE, SELFPAY ==
--- OUTSIDE RECORDS SUMMARY | 2025-08-23 16:24 | XMS_ITS | Clinical Summary ---
Author Organization [facility] [employer] Address [address] [facility] [place] [address] Care Team Providers Care Vest Tailor Name Role Phone Unavailable Primary Care Provider Unavailabl e Source Comments [facility] [employer],non-owned Affiliates and Associated Physician Practices is amultiple site organization consisting of ambulatory clinics and hospital sitesin [place], [place], [place] and [place]. This disclosure is being madepursuant to the Care Everywhere program and may not contain all information available regarding this patient. Last updated 18.[facility] [employer] Allergies Active Allergy Reactions Criticality Noted Date [...] Active Cholecalcifero l (vitamin D3) 1.25 MG (99549 UT) capsule Take 1 (one) capsule by [...] hematoma with loss of consciousness, initial encounter ([facility]) Take 1 (one) tablet by [...] FLEX SIG - COLON CA SCREENING 1950 LIPID TESTING 1950 MAMMOGRAM 1950 HEPATITIS C SCREENING 03/01/1969 DTAP/TDAP/TD VACCINES (1 - Tdap) 1970 PNEUMOCOCCAL VACCINE 50+ (1 of 1 - PCV) 2001 ZOSTER VACCINE (1 of 2) 2001 DEPRESSION SCREENING 09/14/2024 MEDICARE AWV CALENDAR YEAR 2024 COVID-19 VACCINE (1 - 2024-2 6 season) 2025 INFLUENZA VACCINE (#1) 2025 Respiratory Syncytial Virus (RSV) Vaccine Pt: or over 60 yrs (1 - 1-dose 75+ series) 2026 HEPATITIS B VACCINE Aged Out No longe [...] patient's age to complete this topic Insurance [facility] MEDICARE ADV Advance Directives * Full Code (Latest Code Status on File) Date Activated Date Inactivated Comments 04/23/2023 12:23 AM 04/23/2023 5:24 PM
--- OUTSIDE RECORDS SUMMARY | 2025-08-23 16:24 | XMS_ITS | Clinical Summary ---
Author Organization [facility] Address [address] [place] [address] Care Team Providers Care Joy Operator Helper Name Role Phone Zbigniew Adaem MD Primary Care Provider Allergies Active Allergy Reactions Criticality Noted Date Comments Cyclobenzaprine Hives 04/23/2022 Levothyroxine Hives 04/23/2022 Medications levothyroxine (SYNTHROID) 100 MCG tablet Take 1 tablet (100 mcg total) by mouth every morning. BRAND NAME ONLY Active aspirin EC (ECOTRIN) 81 MG tablet Take 1 tablet (81 mg total) by mouth daily. 5 Active atorvastatin (LIPITOR) 10 MG tablet Take 1 tablet (10 mg total) by mouth nightly at bedtime. 30 tablet 3 5 Active losartan (COZAAR) 25 MG tablet TAKE 1 TABLET(25 MG) BY MOUTH DAILY 90 tablet 3 5 Active metoprolol succinate ER (TOPROL-XL) 25 MG 24 hr tablet TAKE 1 TABLET(25 MG) BY MOUTH DAILY 90 tablet 1 5 Active metoprolol succinate ER (TOPROL-XL) 25 MG 24 hr tablet TAKE 1 TABLET(25 MG) BY MOUTH DAILY 90 tablet 2 5 08/14/20 25 Discontinued Active Problems Problem Noted Date [...] metoprolol. Assessment & Plan (10/08/2023 2:55 PM TERMINAL MAKE UP OPERATOR): Her blood pressure in the office is elevated. Start losartan 25 mg daily. Continue metoprolol. Assessment & Plan (07/27/2022 10:48 PM TERMINAL MAKE UP OPERATOR): Her blood pressure in the office is well controlled. Continue metoprolol. Assessment & Plan (07/11/2022 9:32 AM CDT): Well-controlled on current regimen Hypothyroidism 04/23/2022 Paroxysmal atrial fibrillation 04/23/2022 Assessment & Plan (04/24/2025 1:42 PM [...] anticoagulation. Assessment & Plan (10/08/2023 3:01 PM TERMINAL MAKE UP OPERATOR): She has a history of postoperative atrial fibrillation. Her monitor did not show recurrence of atrial fibrillation. Continue metoprolol. We discussed aspirin and for now would hold off given recent subarachnoid hemorrhage. We briefly discussed left atrial appendage closure. She would prefer not to take anticoagulation. Assessment & Plan (07/27/2022 10:47 PM TERMINAL MAKE UP OPERATOR): I recommended a 30 day event monitor to assess her atrial fibrillation burden. We could consider stopping anticoagulation if she is not having atrial fibrillation. Assessment & Plan (07/11/2022 9:32 AM CDT): Continued on Xarelto 20 mg a day for anticoagulation Continued on metoprolol 25 mg a day for rate control. Graves disease 04/23/2022 Osteoarthritis 04/23/2022 Bilateral lower extremity edema 11/25/2021 Family History Medical History Relation Comments No [...] 36.8 C (98.2 F) 10/01/2023 2:55 PM TERMINAL MAKE UP OPERATOR Respiratory Rate 18 07/08/2023 10:40 AM CDT [...] CDT Office Visit [facility], [address] [phone] Thiago Rebolledo MD [facility]. [facility] [address] [place] [address] Health Maintenance Due Date Last Done Comments Colorectal Cancer Screening Colonoscopy (10 Years) 1950 Hepatitis C 1969 DTaP, Tdap and Td Vaccines ( 1 - Tdap) 1970 Mammogram Screening 1991 Pneumococcal Vaccine: 50+ Ye ars (1 of 1 - PCV) 2001 Zoster Vaccines (1 of 2) 2001 Annual Medicare Wellness Visit 2016 Dexa Scan (General) 2016 PHQ-2 (Physician [place]) 09/14/2024 COVID-19 Vaccine (1 - 2024-2 6 season) 2025 Influenza Adult (#1) 2025 RSV Immunization or 60+ Years (1 - 1-dose 75+ series) 2026 Hepatitis A Vaccines Aged Out No long er eligible based on patient's age to complete this topic Meningococcal B Vaccine Aged Out No l onger eligible based on patient's age to complete this topic Meningococcal Vaccine Aged Out No paul lexie eligible based on patient's age to complete this topic RSV Immunizations Under 20 Months Aged Out No longer eligible based on patient's age to complete this topic Insurance [facility] [place] [address] Care Teams Joy Operator Helper Relationship Specialty Start Date End Date Zbigniew Adame MD [address] [facility] [address] [place] [address] PCP - General FAMILY PRACTICE 04/14/25
--- OUTSIDE RECORDS SUMMARY | 2025-08-23 16:24 | XMS_ITS | Clinical Summary ---
Author Organization 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
--- OUTSIDE RECORDS SUMMARY | 2025-08-23 16:24 | XMS_ITS | Clinical Summary ---
Author Organization [facility] [address] Address [address] [place] [address] Care Team Providers Care Vmware Engineer Name Role Phone Zbigniew Adame MD Primary Care Provider Allergies Active Allergy Reactions Criticality Noted Date Comments Levothyroxine Unknown 07/14/2019 Medications diphenhydrAMINE -acetaminophen (TYLENOL PM) 25-500 mg tablet Take 1 tablet by mouth daily as needed for sleep Active Synthroid 100 mcg tablet Take 100 mcg by mouth daily 2 Active furosemide (LASIX) 20 mg tabletIndicatio ns:Bilateral lower extremity edema Take 1 tablet (20 mg total) by mouth daily as needed (swelling) 30 tablet 1 2 Active Xarelto 20 mg tablet TAKE 1 TABLET(20 MG) BY MOUTH DAILY 90 tablet 1 2 Active Additional Information Patient not taking.Reported on 05/30/2025 metoprolol tartrate (LOPRESSOR) 25 mg immediate release tablet TAKE 1/2 TABLET(12.5 MG) BY MOUTH TWICE DAILY 90 tablet 1 2 Active aspirin 81 mg tablet Take 81 mg by mouth 5 Active losartan (COZAAR) 25 mg tablet Take 1 tablet (25 mg total) by mouth daily 4 Active Active Problems Problem Noted Date Diagnosed Date Bilateral lower extremity edema 11/25/2021 Hypothyroidism 10/13/2019 Chronic anticoagulation 10/13/2019 Essential hypertension 10/13/2019 Paroxysmal atrial fibrillation 10/13/2019 Encounters Date Type Department Care Team Description 06/07/[address] [facility] Medical [facility] [place] [phone] ProviderJose Maria MD 05/30/2025 10:00 AM CDT Office Visit 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 Gender Identity Not on file Sexual Orientation Not on file Last Filed Vital Signs Vital Sign Reading Time Taken Comments Blood Pressure 134/78 05/30/2025 9:51 AM CDT Pulse 55 05/30/2025 9:51 AM CDT Temperature - - Respiratory Rate - - Oxygen Saturation 98% 11/25/2021 10:38 AM CDT Inhaled Oxygen Concentration - - Weight 95.8 kg (211 lb 3.2 oz) 05/30/2025 9:51 A M CDT Height 165.1 cm (5' 5) 05/30/2025 9:51 AM CDT Body Mass Index 35.15 05/30/2025 9:51 AM CDT Plan of Treatment Health Maintenance Due Date Last Done Comments Breast Cancer Screening-Mammogram 1950 Colon Cancer Screening-Colonoscopy 1950 Depression Screening 1951 Fall Risk Assessment 1950 Hepatitis C Screening 1950 Osteoporosis Screening-Bone Density Scan 1951 Hepatitis B Screening 1969 Zoster Vaccine (1 of 2) 2001 Well Visit 65+ 2016 DTaP/Tdap/Td Vaccine (2 - Td or Tdap) 11/17/2022 11/17/2012 Influenza Vaccine (#1) 2025 2, 06/25/2020, 07/06/2017, Additional history exists Pneumococcal vaccine 65+ Completed 03/21/2019, 11/12 Procedures Procedure Name Priority Date/Time Associated Diagnosis Comments US THYROID Schedule Routine, Read Routine (OP Routine) 06/07/2025 8:52 AM CDT from Last 3 Months Results * US Thyroid (06/07/2025 8:52 AM CDT) Anatomical Region Laterality Modality Head and Neck N/A Ultrasound us Historical Provider IMCindy US PROCEDURES Final R esult from Last 3 Months Insurance [facility] MDCR HMO REF [facility]CR HMO REF UHC MEDICARE ADVANTAGE Member Subscriber Plan / Payer (Ef fective 2024-Present) Name:Derek PaezElissa V Relation to Subscriber:Self Name:Derek PaezElissa V Payer ID:[id number] (NAIC) Type:[facility] MEDICARE Address: [place] [phone] [facility] MEDICARE ADVANTAGE Member Subscriber Plan / Payer (Ef fective 2024-Present) Name:Philippe Elissa V Relation to Subscriber:Self Name:Philippe Elissa V Payer ID:[id number] (NA) Type:[facility] MEDICARE Address: [place] [phone] Care Teams Vmware Engineer Relationship Specialty Start Date End Date Zbigniew Adame MD PCP - General Family Practice 06/18/19
--- OUTSIDE RECORDS SUMMARY | 2025-08-23 16:24 | XMS_ITS | Encounter Summary ---
Author Organization [facility] Address [address] [place] [address] Care Team Providers Care Security Professional Name Role Phone Zbigniew Adame MD Primary Care Provider Zbigniew Adame MD Primary Care Provider Encounter Details Date Type Department Care Team (Late Contact Info) Description 04/30/2022 Abstract [facility], [facility] [address] [place], [place] [phone] Courtney Urias MA Social History Tobacco Use [...] PM CDT Office Visit [facility], [place] [place], [place] [phone] Thiago Rebolledo MD [facility]. [address] [address] [place], [place] [phone] documented as of this encounter Procedures Procedure Name Priority Date/Time Associated Diagnosis Comments LIPID PANEL Routine 02/14/2022 LIPID PANEL Routine 11/25/2021 CBC (OUTSIDE LAB) Routine 07/25/2021 PROSTATE SPECIFIC ANTIGEN,TOTAL Routine 07/25/2021 COMPREHENSIVE METABOLIC PANEL Routine 07/25/2021 LIPID PANEL Routine 07/25/2021 HEMOGLOBIN GLYCOSYLATED A1C Routine 07/25/2021 documented in this encounter Results [...] Result * PROSTATE SPECIFIC ANTIGEN,TOTAL (07/25/2021) Pathologist [facility] PSA 0.3 * 07/25/2021 us Doc [facility] Abstract LABORATORY Final Result * (ABNORMAL) COMPREHENSIVE METABOLIC PANEL (07/25/2021) Pathologist [facility] SODIUM S/P/B 140.7 POTASSIUM S/P/B 4.7 CO2 [...] on filedocumented in this encounter Care Teams Security Professional Relationship Specialty Start Date End Date Zbigniew Adame MD [address] [place] [address] PCP - General FAMILY PRACTICE 01/22/22 04/13/25 Zbigniew Adame MD [address] [facility] [address] [place] [address] PCP - General FAMILY PRACTICE 04/14/25 documented as of this encounter
--- OUTSIDE RECORDS SUMMARY | 2025-08-23 16:24 | XMS_ITS | Encounter Summary ---
Author Organization [facility] Address 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
[2025-08-23 19:08] LABS: Hematocrit 45.1 % (37.0-47.0); Hemoglobin 14.5 g/dL (12.0-15.0); Immature Granulocyte Percent A 0.1 % (0-0.5); Lymphocytes Absolute Auto 2.59 K/mm3 (0.9-3.2); Mean Corpuscular HGB Conc 32.2 g/dl (32-36); Mean Corpuscular Hemoglobin 29.7 pg (26-34); Mean Corpuscular Volume 92.2 fl (80-100); Nucleated Red Blood Cells Absolute Auto 0.000 K/mm3 (0.0-0.012); Nucleated Red Blood Cells Perc 0.0 % (0.0-0.2); Platelet Count Result 232 k/mm3 (150-375); Red Blood Count 4.89 M/mm3 (4.2-5.4); White Blood Count 6.9 K/mm3 (4.5-10.0)
[2025-08-23 19:21] LABS: Hemoglobin A1C 5.6 % (<5.7)
[2025-08-23 19:45] LABS: Alanine Aminotransferase 23 U/L (6-35); Albumin Level 3.7 g/dL (3.5-5.1); Alkaline Phosphatase 71 U/L (38-126); Anion Gap 2 mmol/L (4-12); Aspartate Amino Transferase 45 U/L (14-36); Bilirubin,Total 0.8 mg/dL (0.2-1.3); Blood Urea Nitrogen 14 mg/dL (7-17); Calcium 9.0 mg/dL (8.4-10.2); Carbon Dioxide 29 mmol/L (22-30); Chloride 104 mmol/L (98-107); Cholesterol 191 mg/dL (0-200); Estimated Glomerular Filt Rate > 60; Glucose 93 mg/dL (65-110); HDL Direct 49 mg/dL; Potassium 4.0 mmol/L (3.4-5.0); Sodium 135 mmol/L (137-145); Total Protein 6.4 g/dL (6.3-8.2); Triglycerides 108 mg/dL (<150)
[2025-08-23 19:51] LABS: Thyroid Stimulating Hormone Reflex 3.940 uIU/mL (0.465-4.68)
[2025-08-23 20:39] LABS: Vitamin B12 292.0 pg/mL (239-931)
== END 2025-08-23 12:33 | disposition home or self-care (01) ==
PROVIDERS: Visit Provider Family Medicine
DX: E03.9 Hypothyroidism, unspecified (principal); I10 Essential (primary) hypertension; E78.5 Hyperlipidemia, unspecified; E55.9 Vitamin D deficiency, unspecified; R73.9 Hyperglycemia, unspecified; E53.8 Deficiency of other specified B group vitamins
CPT/HCPCS: 36415; 80053; 80061; 82306; 82607; 83036; 84443; 85025